=== PATIENT | male | born 1990 | race Two or more races ===

== ENCOUNTER 2019-06-13 02:57 | Emergency (ER) | payer SELFPAY ==
[~2019-06-13] VITALS: Ht 177.8 cm; Wt 63.5 kg
[2019-06-13 05:53] VITALS: BP 98/63
== END 2019-06-13 05:56 | disposition home or self-care (01) ==
LOC: ER 02:57 → EDBD 02:57 → ER 05:56
DX: M62.838 Other muscle spasm (principal); V43.52XA Car driver injured in collision with other type car in traffic accident, initial encounter; Y93.89 Activity, other specified; Y99.8 Other external cause status; Y92.410 Unspecified street and highway as the place of occurrence of the external cause
CPT/HCPCS: 70450; 71045; 73110